=== PATIENT | female | born 1995 | race Native Hawaiian/Other Pacific Islander ===

== ENCOUNTER 2017-06-20 17:24 | Outpatient (CLI) | payer OTHER | END 2017-06-20 17:30 | disposition short-term general hospital (02) | LOC: AMB 17:24 | DX: S01.81XA Laceration without foreign body of other part of head, initial encounter (principal); R20.8 Other disturbances of skin sensation; V49.88XA Car occupant (driver) (passenger) injured in other specified transport accidents, initial encounter; Y92.488 Other paved roadways as the place of occurrence of the external cause | CPT/HCPCS: A0425; A0427 ==

== ENCOUNTER 2017-06-20 17:32 | Emergency (ER) | payer OTHER ==
[~2017-06-20] VITALS: Ht 160 cm; Wt 68.0 kg
== END 2017-06-20 19:15 | disposition home or self-care (01) ==
LOC: ED 17:32
DX: S00.93XA Contusion of unspecified part of head, initial encounter (principal); V49.3XXA Car occupant (driver) (passenger) injured in unspecified nontraffic accident, initial encounter
CPT/HCPCS: 99283